=== PATIENT | male | born 1975 | race Caucasian/White ===

== ENCOUNTER 2023-12-22 18:19 | Emergency (ER) | payer OTHER, BC, SELFPAY ==
[2023-12-22 18:29] VITALS: BP 168/117; PULSE 112; RESP 18; TEMP 36.4; O2SAT 95; BMI 45.2
--- NOTE | 2023-12-22 18:54 | ED.GENADULT ---
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 This occurred about 3 hours ago. He noticed that he has continued to bleed so he came in for evaluation. Denies any other injury. States that he had a tetanus shot updated 3-4 years ago in [place]. He does not wish to have another 1 done today. Related Data Home Medications Medication Instructions Recorded Confirmed clomiphene citrate 50 mg tablet 50 mg PO 09/25/22 09/25/22 phentermine 37.5 mg tablet 37.5 mg PO 09/25/22 09/25/22 semaglutide 1 mg/dose (4 mg/3 mL) ml subcut 09/25/22 09/25/22 subcutaneous pen injector (Ozempic) tadalafil 10 mg tablet 10 mg PO 09/25/22 09/25/22 Allergies Allergy/AdvReac Type Severity Reaction Status Date / Time No Known Drug Allergies Allergy Verified 12/22/23 18:33 Review of Systems Status of ROS: Reports: 6 or more systems reviewed and unremarkable except as noted in History and below PFSH PFS Social History Smoking Status: Current every day smoker Exam Narrative: Exam Narrative: Obese, well-developed patient in no acute distress. Alert and oriented. Answers questions appropriately. Mood and affect are appropriate. Thoughts are goal oriented and rational. No tangential or magical thinking noted. Patient speaks in full sentences without needing to catch his breath. HEENT: Normocephalic atraumatic. Pupils are equally round reactive to light. Extraocular muscles are intact. Conjunctivae are moist without any icterus noted. Moist mucous membranes. Extremities: Patient has about an 8 mm laceration through the skin into the subcutaneous tissue of the anterior left knee. Unfortunately it appears that he clipped a very small superficial blood vessel and that is where the continuous bleeding appears to be coming from. Const: Vital Signs, click to edit/add: Vital Signs - 24 hr 12/22/23 18:29 Temperature 97.6 F Pulse Rate [Right Pulse Oximeter] 112 H Respiratory Rate 18 Blood Pressure [Le ft Upper Arm] 168/117 H Pulse Oximetry 95 Oxygen Delivery Me thod Room Air Course Course ED Course: Laceration anesthetized with lidocaine with epinephrine. Wound was then cleaned and explored. Two sutures with 3-0 Ethilon were placed with good hemostasis. Vital Signs Vital signs: Initial Vital Signs Temperature 97.6 F 12/22/23 18:29 Temperature Source Temporal Artery Scan 12/22/23 18:29 Pulse Rate 112 H 12/22/23 18:29 Pulse Rhythm Regular 12/22/23 18:29 Respiratory Rate 18 12/22/23 18:29 Blood Pressure 168/117 H 12/22/23 18:29 Blood Pressure Mean 134 H 12/22/23 18:29 Blood Pressure Position Sitting 12/22/23 18:29 Pulse Oximetry 95 12/22/23 18:29 Oxygen Delivery Method Room Air 12/22/23 18:29 Vital Signs Temperature 97.6 F 12/22/23 18:29 Pulse Rate 112 H 12/22/23 18:29 Respiratory Rate 18 12/22/23 18:29 Blood Pressure 168/117 H 12/22/23 18:29 Pulse Oximetry 95 12/22/23 18:29 Oxygen Delivery Method Room Air 12/22/23 18:29 Temperature 97.6 F 12/22/23 18:29 Pulse Rate 112 H 12/22/23 18:29 Respiratory Rate 18 12/22/23 18:29 Blood Pressure 168/117 H 12/22/23 18:29 Pulse Oximetry 95 12/22/23 18:29 Oxygen Delivery Method Room Air 12/22/23 18:29 Medical Decision Making MDM Narrative Medical decision making narrative: The laceration sutured per above. Discharge Plan Discharge Clinical Impression: Laceration Patient Disposition: Home, Self-Care Condition: Improved Additional Instructions: Keep wound clean and dry. Do not soak it. Okay to shower like you normally would. Apply antibiotic ointment and a Band-Aid to it once daily for the next 3-4 days, then can leave open without a Band-Aid once the scab forms. The suture should be removed in about 1 week by her primary care provider. If you notice signs of infection which would include purulent drainage from the laceration or increasing redness around the laceration, follow-up with your doctor right away or return to the ER. Prescriptions: No Action clomiphene citrate 50 mg tablet 50 mg PO phentermine 37.5 mg tablet 37.5 mg PO Ozempic 1 mg/dose (4 mg/3 mL) pen injector subcut Patient Comments: INJECT 1MG SUBCUTANEOUSLY WEEKLY tadalafil 10 mg tablet 10 mg PO Patient Comments: TAKE 1 TO 2 TABLETS BY MOUTH ONCE DAILY NEEDED Follow Up/Referrals: Provider,Not a Local [Primary Care Provider] - Stand Alone Forms: [employer] Info Instructions
--- NOTE | 2023-12-22 19:01 | ED.NURSE ---
Applied bacitracin and bandaid to laceration.
== END 2023-12-22 19:23 | disposition home or self-care (01) ==
LOC: ED 19:18
PROVIDERS: Emergency Provider Family Medicine
DX: S81.012A Laceration without foreign body, left knee, initial encounter (principal); W27.8XXA Contact with other nonpowered hand tool, initial encounter
CPT/HCPCS: 12001; 99283; 99284